=== PATIENT | female | born 1955 ===

== ENCOUNTER 2024-04-25 04:19 | Day surgery (SDC) | payer OTHER, BC ==
[2024-04-20 12:10] VITALS: BMI 33.2
[2024-04-25] MEDS ORDERED: PROPOFOL 40 ML ONE (12:01)
[2024-04-25] MEDS ORDERED: LIDOCAINE HCL/PF 2% SDV 5ML VIAL ONE (12:01)
[2024-04-25] MEDS ORDERED: MIDAZOLAM HCL 2 MG/2 ML SINGLE DOSE VIAL ONE (12:02)
[2024-04-25] MEDS ORDERED: ceFAZolin SODIUM 1 GM VIAL ONE (13:01)
[2024-04-25] MEDS ORDERED: DEXAMETHASONE SOD PHOSPHATE 4 MG/1 ML VIAL ONE (13:01)
[2024-04-25] MEDS ORDERED: ONDANSETRON 4 MG/2 ML VIAL ONE (13:05)
[2024-04-25] MEDS ORDERED: KETOROLAC TROMETHAMINE 30 MG/1 ML VIAL ONE (13:05)
[2024-04-25] MEDS: ceFAZolin SODIUM 1 GM VIAL IVPB ONE ×2 (13:06)
[2024-04-25] MEDS: LIDOCAINE HCL 1%, 10 MG/ML (20ML VIAL) INF ONE ×2 (13:12)
[2024-04-25] MEDS ORDERED: PROMETHAZINE HCL 25 MG/1 ML VIAL IVPB PRN (13:27)
[2024-04-25] MEDS ORDERED: ONDANSETRON 4 MG/2 ML VIAL IVPUSH PRN (13:27)
[2024-04-25] MEDS ORDERED: oxyCODONE HCL 5 MG TABLET PO PRN ×2 (13:27)
[2024-04-25] MEDS ORDERED: LACTATED RINGERS SOLUTION 1,000 ML IV SCH (13:30)
[2024-04-25] MEDS: ACETAMINOPHEN 1000 MG/100 ML BAG IVPB ONE (14:20)
[2024-04-25] MEDS: ACETAMINOPHEN INJECTION 100 ML IVPB ONE (14:21)
[2024-04-25] MEDS: DEXTROSE 5%-0.45% SALINE 1,000 ML IV SCH (14:21)
[2024-04-25] MEDS: IBUPROFEN 600 MG TABLET (FP) PO ONE (16:02)
[2024-04-25] MEDS ORDERED: IBUPROFEN 600 MG TABLET (FP) PO ONE (16:04)
[2024-04-25 16:10] VITALS: RESP 16; TEMP 97.3
[2024-04-25 17:00] VITALS: BP 159/71; PULSE 16
== END 2024-04-25 17:20 | disposition home or self-care (01) ==
LOC: JASU-SURG 04:19
PROVIDERS: ATTEND Urology
PROC: 01HY3MZ Insertion of Neurostimulator Lead into Peripheral Nerve, Percutaneous Approach (ICD-10-PCS; 2024-04-25)
PROC: 0JH70BZ Insertion of Single Array Stimulator Generator into Back Subcutaneous Tissue and Fascia, Open Approach (ICD-10-PCS; principal; 2024-04-25 12:30)
DX: N39.41 Urge incontinence (principal); N32.81 Overactive bladder
CPT/HCPCS: 64561; 64590; C1778; L8679; 76000-TC-FY; 94760; C1820; C1897; J0131